=== PATIENT | male | born 1955 | race Caucasian/White ===

== ENCOUNTER → 2016-11-19 | Outpatient (CLI) | payer MEDICAID ==
[~2016-11-19] MED LIST: ASPI1TAB93 PO; ASPI81TA81; ATOR20TA15 PO; BACL10TA PO; DULO1CAP2 PO; EXCETAB66 PO; GABA800T PO; HYDR-3516 PO; LACO100 PO; LISI-515 PO; MULT-135 PO; SUPETAB20 PO
[2016-11-19 14:35] LABS: AUTOMATED NEUTROPHIL # 2.6 TH/MM3 (1.8-7.7); BASOPHIL # 0.1 TH/MM3 (0-0.2); BASOPHIL % 1.1 % (0.0-2.0); EOSINOPHIL # 0.1 TH/MM3 (0-0.4); EOSINOPHIL % 1.6 % (0.0-4.0); HEMATOCRIT 40.9 % (39.0-51.0); HEMO FLAGS DIFF FINAL; LYMPH % 40.4 % (9.0-44.0); LYMPHOCYTE # 2.2 TH/MM3 (1.0-4.8); MEAN CELL VOLUME 93.6 FL (80.0-100.0); MEAN CORPUSCULAR HEMOGLOBIN 31.1 PG (27.0-34.0); MEAN CORPUSCULAR HGB CONC 33.2 % (32.0-36.0); MONO % 9.9 % (0.0-8.0); PLATELET COUNT 299 TH/MM3 (150-450); RED BLOOD COUNT 4.37 MIL/MM3 (4.50-5.90); RED CELL DISTRIBUTION WIDTH 12.6 % (11.6-17.2); WHITE BLOOD COUNT 5.5 TH/MM3 (4.0-11.0)
== END ==
LOC: PHPRE 12:16
PROVIDERS: ATTEND Orthopaedic Surgery
DX: Z01.810 Encounter for preprocedural cardiovascular examination (principal); Z01.812 Encounter for preprocedural laboratory examination; M75.41 Impingement syndrome of right shoulder
CPT/HCPCS: 36415; 85025

== ENCOUNTER → 2016-12-05 | Day surgery (SDC) | payer MEDICAID ==
[~2016-12-05] VITALS: Ht 167.6 cm; Wt 63.8 kg
[~2016-12-05] MED LIST changes: -ASPI81TA81; +BUPIVACAINE HCL PF 0.5% 30 ML VIAL NERV BLOCK ONE; +BUPIVACAINE/EPINEPHRINE 0.5% PF 30 ML VIAL ONE; +DEXAMETHASONE SOD PHOS 4 MG/ML VIAL ONE; -EXCETAB66 PO; +FAMOTIDINE 20 MG/2 ML VIAL ONE; +LACTATED RINGER'S 1000 ML INJ 1,000 ML ONE; +MIDAZOLAM HCL 5 MG/ML VIAL (1 ML) ONE; +ONDANSETRON HCL 4 MG/2 ML VIAL IV PUSH ONE; +PROPOFOL 200 MG/20 ML AMP IV ONE; +SODIUM CHLOR 0.9% 250 ML INJ 250 ML ONE; +VANCOMYCIN HCL 1000 MG VIAL ONE; +ceFAZolin 2 GM PREMIX 50 ML ONE; +ePHEDrine/NS 25 MG/5 ML SYR IV ONE
[2016-12-05 06:25] VITALS: BP 156/109; PULSE 52; RESP 16; TEMP 97.4; O2SAT 97
[2016-12-05 06:30] VITALS: PULSE 52
[2016-12-05 07:42] VITALS: PULSE 56
[2016-12-05 09:05] VITALS: PULSE 76
[2016-12-05 09:45] VITALS: BP 139/62; PULSE 72; RESP 16; TEMP 97.7; O2SAT 97
--- NOTE | 2016-12-08 09:50 | MP ---
cc: UMESH CARDENAS M.D. DATE OF SURGERY: 12/05/[address] Umesh Cardenas PREOPERATIVE DIAGNOSIS 1. Impingement syndrome of the right shoulder with tendinosis / tendinitis. 2. Possible rotator cuff deficiency. 3. Mild osteoarthritis acromioclavicular joint. POSTOPERATIVE DIAGNOSIS Tendinosis / tendinitis of the right shoulder with impingement syndrome. PROCEDURE Partial acromioplasty with anterior decompression of rotator cuff and excision of coracoacromial ligament. DETAILS OF PROCEDURE The patient was placed on the operating room table in a supine position and adequate general anesthesia was administered by the anesthesiologist. The patient was then placed in a modified beach-chair position and the right shoulder was prepped and draped in the usual sterile fashion. After a timeout was called and the patient's name, procedure, etc. were fully confirmed a one-inch incision was made over the shoulder after infiltrating with a few cc's of 0.5% Marcaine with epinephrine. Bleeding points were electrocauterized. Dissection was carried down to the fascial tissue at the origin of the deltoid muscle which was then excised followed by disinsertion of the deltoid fibers onto the anterior border of the acromial process and distal AC joint region. This immediately exposed a very severe thick type of coracoacromial ligament with underlying bursitis. This was excised along with the bursal tissue further exposing the rotator cuff. A partial acromioplasty was required since the patient was obviously impinging at the anterior portion of the acromial process onto the rotator cuff. This was carried out with a high-speed power bur. The remainder of the bursal tissue was further exposed and excised. The rotator cuff was now fully visible and through rotating the shoulder the entire surface was palpated and visualized and found to have no significant rotator cuff tear or deficiency. Thorough irrigation was carried out through the subacromial space. No longer did we encounter any type of impingement remaining after the surgical decompression. The acromioclavicular joint appeared to be stable and with the mild changes it did not appear to be requiring distal claviculectomy. We did remove the undersurface that was impinging. The wound was then finally irrigated and then the deltoid muscle was reinserted with [id number] suture of #2 Tycron. The subcutaneous tissue was then closed with a running subcuticular suture of 3-0 Vicryl since the patient had little in the way of fatty tissue being extremely thin. Steri-Strips were finally applied and a small dressing was applied after that. The patient was then immobilized in a sling and swathe. Sponge counts, needle counts and instrument counts were reportedly correct x2. Estimated blood loss was nil. The procedure was tolerated well and the patient went to the recovery room in satisfactory condition. Umesh Cardenas MD LEONARDO/KIRAN /8:58 AM /9:35 AM
== END | disposition home or self-care (01) ==
LOC: PHSDC 06:01
PROVIDERS: ATTEND Orthopaedic Surgery
DX: M75.41 Impingement syndrome of right shoulder (principal); M19.011 Primary osteoarthritis, right shoulder; M75.21 Bicipital tendinitis, right shoulder; I10 Essential (primary) hypertension; E78.5 Hyperlipidemia, unspecified; J44.9 Chronic obstructive pulmonary disease, unspecified
CPT/HCPCS: 01630; 23130; 64415; J0690; J1100; J2250; J2405; J3010; J3370; J7050; J7120